=== PATIENT | female | born 1955 | race Caucasian/White ===

== ENCOUNTER 2016-07-03 12:31 | Emergency (ER) | payer OTHER ==
[~2016-07-03] VITALS: Ht 154.9 cm; Wt 110.0 kg
[~2016-07-03 12:31] MED LIST: LEVO.15 PO; MACR100C PO; TRAM50 PO
[2016-07-03 12:46] VITALS: BP 95/65; PULSE 90; RESP 16; TEMP 98.1; O2SAT 96
[2016-07-03] MEDS ORDERED: HORMONE PILL PO (13:12)
[2016-07-03] MEDS ORDERED: LEVO125T4 PO (13:12)
--- NOTE | 2016-07-03 13:23 | PD ---
HPI Chief Complaint: Complaint Time Seen by Provider: 13:14 Travel History International Travel<30 days: No Contact w/Intl Traveler<30days: No Traveled to known affect area: No History of Present Illness HPI 60-year-old female complains of urinary frequency and right flank and right low back pain. Patient states that she started having urinary frequency intermittent right flank and right low back pain for the past week. Isn't states that she has intermittent chills but no fever. Patient denies any dysuria area patient has history of kidney infection in the past. Patient denies any headache. Patient denies any chest pain or shortness of breath. Patient denies abdominal pain. Patient denies any vaginal discharge or bleeding. Patient denies any back pain flank pain abdominal pain now. PFSH Past Medical History Arthritis: Yes Asthma: Yes Cancer: Yes (LEFT BREAST) Chemotherapy: Yes Diabetes: No Diminished Hearing: No Immunizations Current: Yes Thyroid Disease: Yes Influenza Vaccination: No Menopausal: Yes Tubal Ligation: Yes Past Surgical History Appendectomy: Yes (1974) Cholecystectomy: Yes Genitourinary Surgery: Yes (RT KIDNEY ABSCESS I&D) Hysterectomy: Yes Mastectomy: No (LUMPECTOMY WITH 2 LYMPH NODES REMOVED LEFT BREAST) Other Surgery: Yes (THYROID RADIATION) Social History Alcohol Use: No Tobacco Use: No Substance Use: No Allergies-Medications (Allergen,Severity, Reaction): Coded Allergies: Penicillin (Verified Allergy, Mild, RASH, 07/03/16) Reported Meds & Prescriptions Reported Meds & Active Scripts Active Reported [Hormone Pill] 1 Tab PO DAILY Levothyroxine (Levothyroxine Sodium) 125 Mcg Tab Unknown Dose PO DAILY Review of Systems General / Constitutional: No: Fever Eyes: No: Visual changes HENT: No: Headaches Cardiovascular: No: Chest Pain or Discomfort Respiratory: No: Shortness of Breath Gastrointestinal: No: Abdominal Pain Genitourinary: Positive: Frequency, No: Dysuria Musculoskeletal: No: Pain Skin: No Rash Neurologic: No: Weakness Psychiatric: No: Depression Endocrine: No: Polydipsia Hematologic/Lymphatic: No: Easy Bruising Physical Exam Narrative GENERAL: Well-nourished, well-developed patient. SKIN: Focused skin assessment warm/dry. HEAD: Normocephalic. EYES: No scleral icterus. No injection or drainage. NECK: Supple, trachea midline. No JVD or lymphadenopathy. CARDIOVASCULAR: Regular rate and rhythm without murmurs, gallops, or rubs. RESPIRATORY: Breath sounds equal bilaterally. No accessory muscle use. GASTROINTESTINAL: Abdomen soft, non-tender, nondistended. MUSCULOSKELETAL: No cyanosis, or edema. BACK: Nontender without obvious deformity. No CVA tenderness. Neurologic exam normal. Data Data Last Documented VS Vital Signs Date Time Temp Pulse Resp B/P Pulse Ox O2 Delivery O2 Flow Rate FiO2 07/03/16 12:46 98.1 90 16 95/65 96 Orders Urinalysis - C+S If Indicated (07/03/16 13:20) Urine Culture (07/03/16 15:50) Labs Laboratory Tests Test 07/03/16 15:50 Urine Collection Type CATH Urine Color YELLOW Urine Turbidity CLOUDY Urine pH 5.5 Urine Specific [place] 1.015 Urine Protein 100 mg/dL Urine Glucose (UA) NEG mg/dL Urine Ketones NEG mg/dL Urine Occult Blood SMALL Urine Nitrite NEG Urine Bilirubin NEG Urine Leukocyte Esterase MOD Urine RBC 0-3 /hpf Urine WBC 6-8 /hpf Urine Squamous Epithelial 0-5 /hpf Cells Urine Amorphous Sediment FEW Microscopic Urinalysis Comment CULTURE INDICATED MDM Medical Decision Making Medical Screen Exam Complete: Yes Emergency Medical Condition: Yes Interpretation(s) 1609 PM. UA positive for WBC. Differential Diagnosis Differential diagnosis including UTI, pyelonephritis, nephrolithiasis, musculoskeletal. Narrative Course 60-year-old female with urinary frequency and right flank and right low back pain. Diagnosis Primary Impression: UTI (urinary tract infection) Qualified Code: N30.00 - Acute cystitis without hematuria Additional Instructions: Bactrim DS as directed. Ibuprofen for back pain. Follow-up with personal physician. Return if worse. Med/Other Pt SpecificInfo: Prescription(s) given Scripts Ibuprofen 600 Mg Aly037 Mg PO Q8HR PRN (PAIN) #30 TAB Ref 0 Prov:Richardson Haley MD 07/03/16 Sulfamethoxazole-Trimethoprim (Bactrim DS)800-160 Mg Tab1 Tab PO BID #14 TAB Prov:Richardson Haley MD 07/03/16 Disposition: 01 DISCHARGE HOME Condition: Stable Richardson Haley MD Jul 03, 2016 13:23
[2016-07-03 15:57] LABS: BLOOD, URINE SMALL (NEG); GLUCOSE,URINE NEG (NEG); KETONE, URINE NEG (NEG); NITRITE,URINE NEG (NEG); PH, URINE 5.5 (5.0-8.5)
[2016-07-03 15:59] LABS: METHOD OF COLLECTION CATH; URINE COLOR YELLOW (YELLW/STRAW)
[2016-07-03 16:01] LABS: COMMENT (UR) CULTURE INDICATED; CULTURE IF INDICATED CULTURE INDICATED; RBC, URINE 0-3 /hpf (0-3); SQUAMOUS EPITHELIAL CELL URINE 0-5 /hpf (0-5)
[2016-07-03] MEDS ORDERED: BACT800T5 PO (16:11)
[2016-07-03] MEDS ORDERED: IBUP-232 PO (16:11)
[2016-07-03 16:23] VITALS: BP 109/65; PULSE 73; RESP 18; O2SAT 100
== END 2016-07-03 16:38 | disposition home or self-care (01) ==
LOC: PHED 12:31
DX: N30.00 Acute cystitis without hematuria (principal); B96.89 Other specified bacterial agents as the cause of diseases classified elsewhere; J45.909 Unspecified asthma, uncomplicated; M19.90 Unspecified osteoarthritis, unspecified site; E07.9 Disorder of thyroid, unspecified; Z88.0 Allergy status to penicillin; Z85.3 Personal history of malignant neoplasm of breast
CPT/HCPCS: 81001; 87086; 99283; P9612